=== PATIENT | male | born 1980 | race Caucasian/White ===

== ENCOUNTER 2017-07-17 17:29 | Emergency (ER) | payer OTHER ==
[~2017-07-17] VITALS: Ht 185.4 cm; Wt 83.9 kg
[~2017-07-17 17:29] MED LIST: ATIVAN1 MG PO
[2017-07-17] MEDS ORDERED: FLUOXETINE HCL40 MG PO (18:22)
== END 2017-07-17 19:17 | disposition left against medical advice (07) ==
LOC: ED 17:29
DX: Z53.21 Procedure and treatment not carried out due to patient leaving prior to being seen by health care provider (principal)

== ENCOUNTER 2017-07-18 13:29 | Emergency (ER) | payer OTHER ==
[~2017-07-18] VITALS: Ht 185.4 cm; Wt 83.9 kg
[~2017-07-18 13:29] MED LIST changes: +FLUOXETINE HCL40 MG PO
== END 2017-07-18 16:06 | disposition home or self-care (01) ==
LOC: ED 13:29
PROC: 2W3KX1Z Immobilization of Left Finger using Splint (ICD-10-PCS; principal; 2017-07-18)
DX: S61.311A Laceration without foreign body of left index finger with damage to nail, initial encounter (principal); F17.200 Nicotine dependence, unspecified, uncomplicated; Z79.899 Other long term (current) drug therapy; W45.8XXA Other foreign body or object entering through skin, initial encounter; Y92.69 Other specified industrial and construction area as the place of occurrence of the external cause
CPT/HCPCS: 29130; 99282

== ENCOUNTER 2017-12-06 17:36 | Emergency (ER) | payer OTHER ==
[~2017-12-06] VITALS: Ht 185.4 cm; Wt 81.7 kg
== END 2017-12-06 18:16 | disposition home or self-care (01) ==
LOC: ED 17:36
DX: F10.20 Alcohol dependence, uncomplicated (principal); F17.200 Nicotine dependence, unspecified, uncomplicated
CPT/HCPCS: 99282

== ENCOUNTER 2018-07-08 10:50 | Emergency (ER) | payer OTHER ==
[~2018-07-08] VITALS: Ht 185.4 cm; Wt 81.7 kg
[2018-07-08] MEDS ORDERED: PROZAC20 MG PO (11:03)
== END 2018-07-08 13:39 | disposition home or self-care (01) ==
LOC: ED 10:50
DX: F10.20 Alcohol dependence, uncomplicated (principal); F11.10 Opioid abuse, uncomplicated; Y90.8 Blood alcohol level of 240 mg/100 ml or more; Z79.899 Other long term (current) drug therapy
CPT/HCPCS: 80053; 80176; 81001; 83690; 85025; 96365; 96375; 99284-25; G0480; J2060; J3411; J7030

== ENCOUNTER 2018-08-07 07:56 | Emergency (ER) | payer OTHER ==
[~2018-08-07] VITALS: Ht 185.4 cm; Wt 81.6 kg
[~2018-08-07 07:56] MED LIST changes: +PROZAC20 MG PO
--- OUTSIDE RECORDS SUMMARY | 2018-08-07 07:58 | XMS ---
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 David has no Care Guidelines for this patient. Milana VISIT COUNT (12 MO.) [address] [facility] TOTAL 3 NOTE: Visits indicate total known visits. ED/C VISIT TRACKING (12 MO.) 08/07/2018 07:56 [facility] TYPE: Emergency COMPLAINT: - CHEST PAIN 07/08/2018 10:50 [facility] TYPE: Emergency COMPLAINT: - ETOH DETOX DIAGNOSES: - Alcohol dependence, uncomplicated - Blood alcohol level of 240 mg/100 ml or more - Alcohol dependence with withdrawal, unspecified - Other long chain beamer (current) drug therapy - Opioid abuse, uncomplicated 12/06/2017 17:37 [facility] TYPE: Emergency COMPLAINT: - DETOX DIAGNOSES: - Alcohol dependence, uncomplicated - Nicotine dependence, unspecified, uncomplicated INPATIENT VISIT TRACKING (12 MO.) No inpatient visits to display in this time frame [email or web address]
== END 2018-08-07 09:44 | disposition home or self-care (01) ==
LOC: ED 07:56
DX: F10.129 Alcohol abuse with intoxication, unspecified (principal); Y90.8 Blood alcohol level of 240 mg/100 ml or more
CPT/HCPCS: 80053; 80176; 81001; 84443; 85025; 99284; G0480